=== PATIENT | male | born 1995 | race African-American/Black ===

== ENCOUNTER 2019-10-28 22:10 | Emergency (ER) | payer MEDICAID ==
[~2019-10-28] VITALS: Ht 152.4 cm; Wt 92.5 kg
[2019-10-28 22:52] LABS: ABSOLUTE BASOPHILS 0.1 thou/uL (0.0-0.2); ABSOLUTE LYMPHOCYTES 2.4 thou/uL (0.8-5.3); ABSOLUTE MONOCYTES 0.5 thou/uL (0.0-1.2); ABSOLUTE NEUTROPHILS 2.6 thou/uL (1.6-8.1); EOSINOPHILS 0.8 %; HEMATOCRIT 42.7 % (42.0-52.0); HEMOGLOBIN 14.8 gm/dL (14.0-18.0); LYMPHOCYTES 42.6 %; MCH 32.6 pg (26.0-34.0); MCHC 34.6 g/dL (28.0-37.0); MCV 94.1 fL (80.0-100.0); MPV 7.5 fl. (7.2-11.1); NUCLEATED RBCS 0 /100WBC; PLATELET COUNT* 290 thou/uL (150-400); POLYS 46.6 %; RBC 4.54 mil/uL (4.50-6.00); WBC 5.6 thou/uL (4.0-11.0)
[2019-10-28 23:00] LABS: CALCIUM 9.1 mg/dL (8.5-10.1); CREATININE 1.3 mg/dL (0.6-1.3); POTASSIUM 3.8 mmol/L (3.5-5.1)
[2019-10-28 23:04] LABS: ALBUMIN 3.5 g/dL (3.4-5.0); TOTAL BILIRUBIN 0.3 mg/dL (<0.1-1.0); TOTAL PROTEIN 8.1 g/dL (6.4-8.2)
[2019-10-28 23:23] LABS: ALCOHOL < 10 mg/dL (<10); SALICYLATE < 2.8 mg/dL (2.8-20.0)
[2019-10-28 23:28] LABS: ACETAMINOPHEN < 2 ug/mL (10-30)
[2019-10-29 01:10] LABS: URINE BILIRUBIN NEGATIVE (Negative); URINE BLOOD NEGATIVE (Negative); URINE CLARITY CLEAR; URINE COLOR STRAW; URINE GLUCOSE-RANDOM NEGATIVE (Negative); URINE KETONES NEGATIVE (Negative); URINE LEUKOCYTES-REFLEX NEGATIVE (Negative); URINE NITRITE-REFLEX NEGATIVE (Negative); URINE PROTEIN NEGATIVE (Negative); URINE UROBILINOGEN 0.2 E.U./dl (0.2-1.0)
[2019-10-29 01:17] LABS: AMP/METHAMP Negative (Negative); BARBITURATES Negative (Negative); BENZODIAZEPINES Negative (Negative); COCAINE Negative (Negative); METHADONE Negative (Negative); OPIATES Negative (Negative); PCP Negative (Negative); THC Negative (Negative)
[2019-10-29] MEDS ORDERED: TRAZODONE HCL50 MG PO (01:25)
[2019-10-29] MEDS ORDERED: ATIVAN1 M1 PO (01:25)
[2019-10-29 01:41] VITALS: BP 128/84
== END 2019-10-29 01:43 | disposition home or self-care (01) ==
LOC: EDBD 22:10 → M.ERS 22:10
PROVIDERS: Emergency Medicine
DX: F63.81 Intermittent explosive disorder (principal)

== ENCOUNTER 2019-10-31 09:42 | Emergency (ER) | payer MEDICAID ==
[~2019-10-31] VITALS: Ht 162.6 cm; Wt 90.7 kg
[~2019-10-31 09:42] MED LIST: ATIVAN1 M1 PO; TRAZODONE HCL50 MG PO
[2019-10-31] MEDS ORDERED: RISPERDAL2 MG PO (12:54)
[2019-10-31 13:03] VITALS: BP 120/69
[2019-10-31] MEDS ORDERED: REMERON15 M2 PO (17:30)
== END 2019-10-31 13:04 | disposition home or self-care (01) ==
LOC: M.ERS 09:42
DX: F63.81 Intermittent explosive disorder (principal)